=== PATIENT | female | born 1985 | race Caucasian/White ===

== ENCOUNTER 2019-03-01 09:44 | Emergency (ER) | payer OTHER | END 2019-03-01 14:26 | disposition home or self-care (01) | LOC: JER 09:44 ==

== ENCOUNTER 2020-04-12 09:15 | Inpatient (IN) | payer OTHER ==
[2020-04-12 11:33] VITALS: BP 128/82; PULSE 82; TEMP 98.3; BMI 34.6
[2020-04-12 11:46] LABS: INR 0.97 (0.83-1.09); PROTHROMBIN TIME (PATIENT) 11.4 SEC (9.7-13.0)
[2020-04-12 11:47] LABS: BASO % 0.3 % (0-2.0); EOS % 0.3 % (0-4.5); HEMATOCRIT 29.5 % (32.4-45.2); HEMOGLOBIN 9.5 GM/dL (10.7-15.3); LYMPH % 12.5 % (8-40); MCH 23.4 pg (25.7-33.7); MCHC 32.1 g/dl (32.0-36.0); MEAN PLT VOLUME 10.9 fl (7.5-11.1); MONO % 6.4 % (3.8-10.2); NEUT % 80.5 % (42.8-82.8); PLATELET COUNT 167 K/MM3 (134-434); RBC 4.04 M/mm3 (3.60-5.2); WHITE BLOOD COUNT 9.4 K/mm3 (4.0-10.0)
[2020-04-12] MEDS ORDERED: AMPICILLIN SODIUM 2 GM VIAL ONE (11:47)
[2020-04-12 11:48] LABS: ACTIVATED PTT 24.9 SECONDS (25.2-36.5)
[2020-04-12 12:01] LABS: BLOOD UREA NITROGEN 6.5 mg/dL (7-18); CALCIUM 8.9 mg/dL (8.5-10.1); CREATININE 0.5 mg/dL (0.55-1.3); POTASSIUM 3.6 mmol/L (3.5-5.1)
--- NOTE | 2020-04-12 13:10 | HP ---
Past Medical History - Primary Care Physician PCP:: Rosa Elena Cline - Admission History Source: Patient Limitations to Obtaining History: No Limitations - Past Medical History ...: 8 ...Para: 3 ...Term: 3 ...Spon : 1 ...Induced : 3 ...Living Children: 3 ...EDC by [facility]: 04/10/20 - Past Surgical History Hx Myomectomy: No Hx Transabdominal Cerclage: No Additional Surgical History: abdominoplasty - Smoking History Smoking history: Never smoked Have you smoked in the past 12 months: No Aproximately how many cigarettes per day: 0 - Alcohol/Substance Use Hx Alcohol Use: No History of Substance Use: reports: None - Social History Usual Living Arrangement: Yes: With Spouse History of Recent Travel: No Home Medications - Allergies Allergies/Adverse Reactions: Allergies Allergy/AdvReac Type Severity Reaction Status Date / Time No Known Allergies Allergy Verified 04/12/20 11:41 - Home Medications Home Medications: Ambulatory Orders NK [No Known Home Medication] 12/28/18 Review of Systems - Review of Systems Constitutional: reports: No Symptoms Eyes: reports: No Symptoms HENT: reports: No Symptoms Neck: reports: No Symptoms Cardiovascular: reports: No Symptoms Respiratory: reports: No Symptoms Gastrointestinal: reports: Abdominal Pain Genitourinary: reports: No Symptoms Breasts: reports: No Symptoms Reported Musculoskeletal: reports: No Symptoms Integumentary: reports: No Symptoms Neurological: reports: No Symptoms Endocrine: reports: No Symptoms Hematology/Lymphatic: reports: No Symptoms Psychiatric: reports: No Symptoms Physical Exam - Maternity Vital Signs: Vital Signs Temperature 98.3 F 04/12/20 11:22 Pulse Rate 82 04/12/20 11:22 Respiratory Rate 18 04/12/20 11:22 Blood Pressure 128/82 04/12/20 11:22 O2 Sat by Pulse Oximetry (%) Constitutional: Yes: Well Nourished, No Distress Breast(s): Yes: WNL - Abdominal Exam/OB Fundal Height: 40 Number of Fetuses: Single Presentation: Vertex Contractions: Yes Category: I - Vaginal Exam/OB Dilatation (cm): 3 Amniotic Membrane Status: Intact Presentation: Vertex/Position - Physical Exam Musculoskeletal: Yes: WNL Extremities: Yes: WNL - Labs Lab Results: CBC, BMP 04/12/20 11:20 04/12/20 11:20 Problem List - Problems (1) Labor established Code(s): [id number] - Assessment/Plan IUp at 40 week AMA Cat 1 Early labor Plan DC home
[2020-04-12] MEDS ORDERED: WITCH HAZEL 50% (TUCKS) 40 PAD/JAR PAD TP PRN (13:12)
[2020-04-12] MEDS ORDERED: ACETAMINOPHEN 325 MG TABLET (FP) PO PRN (13:12)
[2020-04-12] MEDS ORDERED: BISACODYL 10 MG SUPP.RECT PR PRN (13:12)
[2020-04-12] MEDS ORDERED: BENZOCAINE 20% 57 GM BOTTLE TP PRN (13:12)
[2020-04-12] MEDS ORDERED: IBUPROFEN 600 MG TABLET (FP) PO PRN (13:12)
[2020-04-12] MEDS ORDERED: BENZOCAINE 28 GM HEMORRHOIDAL OINTMENT TP PRN (13:12)
[2020-04-12] MEDS ORDERED: METHYLERGONOVINE MALEATE 0.2 MG/1 ML AMP IM PRN (13:12)
[2020-04-12] MEDS ORDERED: BUTORPHANOL TARTRATE 1 MG/ML VIAL IVPB SCH (13:15)
[2020-04-12] MEDS ORDERED: ELECTROLYTE-148 SOLN 1,000 ML IV SCH (13:15)
[2020-04-12] MEDS ORDERED: SENNOSIDES/DOCUSATE COMBO (SENNA PLUS) TABLET (UD) PO SCH (22:00)
== END 2020-04-12 14:10 | disposition home or self-care (01) | DRG 861 ==
LOC: JLDR 09:15
PROVIDERS: ADMIT Obstetrics & Gynecology; ATTEND Obstetrics & Gynecology
DX: Z34.80 Encounter for supervision of other normal pregnancy, unspecified trimester (principal); Z3A.40 40 weeks gestation of pregnancy
CPT/HCPCS: 36415; 80048; 85025; 85610; 85730; 86780; 86850; 86900; 86901; U0003

== ENCOUNTER 2020-04-13 01:35 | Inpatient (IN) | payer OTHER ==
--- NOTE | 2020-04-13 02:12 | PD.OB.PROG ---
Past Medical History - Primary Care Physician Documenting Provider Type: Laborist - Admission Chief Complaint: s/p extramural delivery History of Present Illness: 34yo EDC 04/10/20 presents s/p extramural in the ED parking lot. care was with Dr. Cline and uncomplicated per pt. History Source: Patient Limitations to Obtaining History: No Limitations - Nursing Documentation Nursing Documentation Reviewed: Yes - Past Medical History [employer] HANGER: Denies/None Cardio/Vascular: Denies/None Pulmonary: Denies/None Gastrointestinal: Denies/None Hepatobiliary: Denies/None Renal/: Denies/None ...: 8 ...Para: 3 ...Term: 3 ...Spon : 1 ...Induced : 3 ...Living Children: 3 ... Weeks Gestation by Dates: 40.3 ...EDC by Dates: 04/10/20 Heme/Onc: Denies/None Infectious Disease: Denies/None Psych: Denies/None Musculoskeletal: Denies/None Rheumatology: Denies/None - Past Surgical History Past Surgical History: Yes: Breast Biopsy (breast reduction; abdominoplasty), Cholecystectomy - Smoking History Smoking history: Never smoked Have you smoked in the past 12 months: No Aproximately how many cigarettes per day: 0 - Alcohol/Substance Use Hx Alcohol Use: No History of Substance Use: reports: None - Social History History of Recent Travel: No Review of Systems - Review of Systems Constitutional: reports: No Symptoms Eyes: reports: No Symptoms HENT: reports: No Symptoms Neck: reports: No Symptoms Cardiovascular: reports: No Symptoms Respiratory: reports: No Symptoms Gastrointestinal: reports: No Symptoms Genitourinary: reports: Pain, Vaginal Bleeding, Other Breasts: reports: No Symptoms Reported Musculoskeletal: reports: No Symptoms Integumentary: reports: No Symptoms Neurological: reports: No Symptoms Endocrine: reports: No Symptoms Hematology/Lymphatic: reports: No Symptoms Psychiatric: reports: No Symptoms Physical Exam - Obstetrical Constitutional: Yes: Well Nourished, No Distress HENT: Yes: WNL, Tonsillar Exudate - Abdominal Exam/OB Fundal Height: 25 Number of Fetuses: Single Presentation: Vertex - Vaginal Exam/OB Vaginal Bleeding: Yes, Light (pt s/p extramural delivery small first degree laceration noted on left side cervix appears intact) Speculum Exam: No (s/p extramural delivery) - Physical Exam Musculoskeletal: Yes: WNL Extremities: Yes: WNL Integumentary: Yes: WNL Problem List - Problems (1) care and examination immediately after delivery Code(s): Z39.0 - ENCNTR FOR CARE AND EXAM OF MOTHER IMMEDIATELY AFTER DEL (2) care following vaginal delivery Code(s): Z39.2 - ENCOUNTER FOR ROUTINE FOLLOW-UP Assessment/Plan 34yo s/p extramural vaginal delivery placenta delivered intact laceration repair routine pp care Dr. Flaherty
[2020-04-13] MEDS ORDERED: BENZOCAINE 20% 57 GM BOTTLE TP PRN (02:22)
[2020-04-13] MEDS ORDERED: WITCH HAZEL 50% (TUCKS) 40 PAD/JAR PAD TP PRN (02:22)
[2020-04-13] MEDS ORDERED: BENZOCAINE 28 GM HEMORRHOIDAL OINTMENT TP PRN (02:22)
[2020-04-13] MEDS ORDERED: METHYLERGONOVINE MALEATE 0.2 MG/1 ML AMP IM PRN (02:22)
[2020-04-13] MEDS ORDERED: oxyCODONE HCL 5 MG TABLET PO PRN (02:22)
[2020-04-13] MEDS ORDERED: BISACODYL 10 MG SUPP.RECT RC PRN (02:22)
--- NOTE | 2020-04-13 02:27 | PN ---
Delivery - Delivery Vaginal Delivery: Other (extramural) Type of Anesthesia: Local Episiotomy/Laceration: Vaginal Extension/lac, 1st degree EBL (cc): 500 Remarks - Remarks Remarks: Received pt after extramural delivery. Placenta insitu. Placenta delivered intact with 3vc. 1st degree vaginal laceration repaired with excellent hemostasis and orthodoxy of anatomy. Fundus firm. Vault empty. Mother and baby stable.
[2020-04-13] MEDS ORDERED: OXYTOCIN 20 UNITS in 0.9% NS 20 UNIT/1,000 ML INFUS.BAG IV SCH (02:30)
[2020-04-13 03:15] VITALS: BMI 34.6
[2020-04-13] MEDS ORDERED: OXYTOCIN 20 UNITS in 0.9% NS 20 UNIT/1,000 ML INFUS.BAG IV ONE (03:38)
[2020-04-13] MEDS: ACETAMINOPHEN 325 MG TABLET (FP) PO PRN (06:29)
[2020-04-13] MEDS: IBUPROFEN 600 MG TABLET (FP) PO PRN (06:30)
[2020-04-13] MEDS: FERROUS SO4 325 MG TABLET (FP) PO SCH ×3 (10:53→18:00)
[2020-04-13] MEDS: PRENATAL VITAMINS W/ FOLIC ACID TABLET (FP) PO SCH (10:53)
--- NOTE | 2020-04-13 23:42 | HP ---
Past Medical History - Primary Care Physician PCP:: Rosa Elena Cline - Admission Chief Complaint: Dleivered in patients car History of Present Illness: 34 yo G 8 P3 EDC 04/10/2020 EGA 40.3 week admitted after delivery in car History Source: Patient Limitations to Obtaining History: No Limitations - Past Medical History ...: 8 ...Para: 3 ...Term: 3 ...: 0 ...Spon : 1 ...Induced : 3 ...Living Children: 3 ...Multiple Gestation: 0 ... Weeks Gestation by Dates: 40.3 ...EDC by Dates: 04/10/20 - Past Surgical History Past Surgical History: Yes: Breast Biopsy (breast reduction; abdominoplasty), Cholecystectomy Hx Myomectomy: No Hx Transabdominal Cerclage: No - Smoking History Smoking history: Never smoked Have you smoked in the past 12 months: No Aproximately how many cigarettes per day: 0 - Alcohol/Substance Use Hx Alcohol Use: No History of Substance Use: reports: None - Social History History of Recent Travel: No Home Medications - Allergies Allergies/Adverse Reactions: Allergies Allergy/AdvReac Type Severity Reaction Status Date / Time No Known Allergies Allergy Verified 04/12/20 11:41 - Home Medications Home Medications: Ambulatory Orders NK [No Known Home Medication] 12/28/18 Physical Exam - Maternity Vital Signs: Vital Signs Temperature 98.3 F 04/13/20 20:39 Pulse Rate 87 04/13/20 20:39 Respiratory Rate 18 04/13/20 20:39 Blood Pressure 101/66 04/13/20 20:39 O2 Sat by Pulse Oximetry (%) 100 04/13/20 03:30 Constitutional: Yes: Well Nourished, No Distress Cardiovascular: Yes: WNL Lungs: Clear to auscultation - Physical Exam Musculoskeletal: Yes: WNL Extremities: Yes: WNL Psychiatric: Yes: WNL, Alert, Oriented Hemorrhage Risk Assessment - Risk Factors Risk Score: 0 Risk Level: Low Risk Problem List - Problems (1) care following vaginal delivery Code(s): Z39.2 - ENCOUNTER FOR ROUTINE FOLLOW-UP Assessment/Plan PPD O sp delivery outside hospital Plan dc home tomorrow
[2020-04-14] MEDS: IBUPROFEN 600 MG TABLET (FP) PO PRN (01:07)
[2020-04-14] MEDS: ACETAMINOPHEN 325 MG TABLET (FP) PO PRN (01:07)
--- NOTE | 2020-04-14 08:22 | DS ---
Physical Exam-[employer] OPERATOR Vital Signs: Vital Signs Temperature 98.3 F 04/13/20 20:39 Pulse Rate 87 04/13/20 20:39 Respiratory Rate 18 04/13/20 20:39 Blood Pressure 101/66 04/13/20 20:39 O2 Sat by Pulse Oximetry (%) 100 04/13/20 03:30 Constitutional: Yes: Well Nourished, No Distress Gastrointestinal: Yes: WNL, Soft ....Post : Yes: Uterus firm, Uterus non-tender Breast(s): Yes: WNL Extremities: Yes: WNL Edema: No Delivery - Delivery Vaginal Delivery: Other (extramural) Type of Anesthesia: Local Episiotomy/Laceration: Vaginal Extension/lac, 1st degree EBL (cc): 500 Delivery, Single - Stages of Labor Date 1st Stage Initiatied: 04/12/20 Time 1st Stage Initiated: 09:00 Date of Delivery: 04/13/20 Time of Delivery: 01:18 Time Placenta Delivered: 01:37 Placenta: Yes: Spontaneous - Condition of Modeling Manager/Rest Room Matron Present: No Gender: Female Weight: 6 lb 4 oz Total Hours ROM (Hrs/Mins): 32MIN - 1 Minute Total Score: 9 5 Minutes Total Score: 9 - Feeding Plan Initial Plan: Elected not to breastfeed exclusively throughout hospitalization Discharge Summary Problems reviewed: Yes Reason For Visit: ADMIT Current Active Problems care and examination immediately after delivery (Acute) care following vaginal delivery (Acute) Procedures: Principal: delivery of placenta Condition: Good - Instructions Diet, Activity, Other Instructions: Physical activity Resume your normal everyday activity as tolerated no heavy lifting or exercise until seen by your surgeon. You may walk unlimited shakira of and climb stairs. You may resume driving the car when you feel safe and comfortable behind the wheel. No sexual activity as instructed. Wound care If you have a bandage, leave it on, and keep dry for 48-72 hours. After that time discard the outer bandage. If they are tapes on the skin under the out of bandage leave them in place. They will peel off in the next 7 to 10 days. Do Not Peel them off. You may shower the day after surgery. If there are tapes present on the skin, you may shower over them. Diet There are no dietary restrictions. Eat healthy, high-fiber foods. Drink 6 to 8 glasses of liquid each day. This will assist in keeping your bowels are regular. Pain management You may take Tylenol or acetaminophen or Ibuprofen (for example, Motrin, Advil etc.) from my pain prescription medication is ordered should be taken as prescribed for moderate to severe pain. Call MD for any of the following: Severe pain not relieved by medication Fever of 101 or higher Excessive bleeding or drainage on dressing Inability to urinate Referrals: Rosa Elena Cline MD [Staff Physician] - Disposition: HOME - Home Medications Comprehensive Discharge Medication List: Ambulatory Orders Ibuprofen [Motrin -] 600 mg PO QID #28 tablet 04/13/20
[2020-04-14 08:55] LABS: BASO % 1.1 % (0-2.0); EOS % 2.5 % (0-4.5); HEMOGLOBIN 8.5 GM/dL (10.7-15.3); LYMPH % 18.2 % (8-40); MCH 22.8 pg (25.7-33.7); MCHC 31.6 g/dl (32.0-36.0); MEAN CELL VOLUME 72.2 fl (80-96); MEAN PLT VOLUME 10.2 fl (7.5-11.1); MONO % 5.7 % (3.8-10.2); NEUT % 72.5 % (42.8-82.8); PLATELET COUNT 171 K/MM3 (134-434); RBC 3.74 M/mm3 (3.60-5.2); RDW 17.2 % (11.6-15.6); WHITE BLOOD COUNT 10.3 K/mm3 (4.0-10.0)
[2020-04-14] MEDS: FERROUS SO4 325 MG TABLET (FP) PO SCH (09:59)
[2020-04-14] MEDS: PRENATAL VITAMINS W/ FOLIC ACID TABLET (FP) PO SCH (09:59)
[2020-04-14 12:09] VITALS: BP 109/74; PULSE 64; TEMP 97.6
[2020-04-14] MEDS ORDERED: SENNOSIDES/DOCUSATE COMBO (SENNA PLUS) TABLET (UD) PO PRN (22:00)
== END 2020-04-14 11:45 | disposition home or self-care (01) | DRG 560 ==
LOC: JLDR 01:35 → J3W 03:48
PROVIDERS: ADMIT Obstetrics & Gynecology; ATTEND Obstetrics & Gynecology
PROC: 10E0XZZ Delivery of Products of Conception, External Approach (ICD-10-PCS; principal; 2020-04-13)
PROC: 0HQ9XZZ Repair Perineum Skin, External Approach (ICD-10-PCS; 2020-04-13)
DX: Z39.0 Encounter for care and examination of mother immediately after delivery (principal); O48.0 Post-term pregnancy; O70.0 First degree perineal laceration during delivery; Z3A.40 40 weeks gestation of pregnancy; Z37.0 Single live birth; Z90.49 Acquired absence of other specified parts of digestive tract; Z98.890 Other specified postprocedural states; Z86.14 Personal history of Methicillin resistant Staphylococcus aureus infection
CPT/HCPCS: 36415; 59409; 85025; 85461; 86999; 87081